=== PATIENT | female | born 1955 | race Caucasian/White ===

== ENCOUNTER 2024-07-10 09:47 | Emergency (ER) | payer MEDICARE, SELFPAY ==
[2024-07-10] VITALS (30 sets, daily range): BP systolic 110–165; BP diastolic 57–88; PULSE 53–65; RESP 15–24; TEMP 36.4–36.9; O2SAT 94–100; BMI 19.7
[2024-07-10 10:18] LABS: Add Manual Diff / Slide Review NO; Basophils Absolute Auto 100 /uL (0-100); Basophils Percent Auto 0.9 % (0-2); Eosinophils Absolute Auto 500 /uL (0-450); Eosinophils Percent Auto 4.8 % (2-4); Hematocrit 26.6 % (36-46); Hemoglobin 9.1 g/dL (12.0-16.0); Lymphocytes Absolute Auto 2200 /uL (1100-4500); Lymphocytes Percent Auto 20.7 % (25-40); Mean Corpuscular HGB Conc 34.3 % (30-36); Monocytes Absolute Auto 800 /uL (0-900); Monocytes Percent Auto 7.2 % (3-14); Neutrophils Absolute Auto 6900 /uL (1500-7000); Neutrophils Percent Auto 66.4 % (50-75); Platelet Count 311 X10^3/uL (150-400); Red Blood Cell Count 2.77 X10^6/uL (4.0-5.2); Red Cell Distribution Width 13.4 % (11.6-14.8); White Blood Cell Count 10.5 X10^3/uL (4.5-11.0)
[2024-07-10 10:20] LABS: INR 0.9 (0.9-1.3); Prothrombin Time 10.7 SECONDS (9.4-12.5)
[2024-07-10 10:23] LABS: PTT Partial Thromboplastin Tim 29 SECONDS (25.1-36.5)
[2024-07-10 10:25] LABS: Alanine Aminotransferase 29 IU/L (<35); Albumin 3.9 g/dL (3.5-5.0); Albumin Globulin Ratio 1.6 (1.0-2.8); Alkaline Phosphatase 84 U/L (38-126); Aspartate Aminotransferase 34 IU/L (14-36); BUN Creatinine Ratio 19.4 (6-22); Bilirubin Total 0.2 mg/dL (0.2-1.3); Blood Urea Nitrogen 18 mg/dL (7-17); Calcium 9.1 mg/dL (8.4-10.2); Carbon Dioxide 27 mmol/L (22-32); Chloride 108 mmol/L (98-107); Estimated Glomerular Filt Rate > 60 mL/min (>60); Globulin 2.4 g/dL (1.7-4.1); Glucose 113 mg/dL (70-99); HEMOLYSIS < 15 (0-50); Potassium 4.2 mmol/L (3.4-5.1); Sodium 142 mmol/L (137-145); Total Protein 6.3 g/dL (6.3-8.2)
--- NOTE | 2024-07-10 10:45 | ED.GIBLEED ---
HPI - GI Bleed General Chief complaint: GI Bleed Stated complaint: High white cell, Low red cell sent from Time Seen by Provider: 07/10/24 10:19 History of Present Illness HPI Narrative: Patient here with who complains of weakness dizziness and black stools since her EGD/colonoscopy last at [facility]. She did have blood work done by her constant your provider yesterday. Hemoglobin 8.7. Her baseline is usually 12 or 13 based on her laboratory records on her laptop/patient portal. Patient states biopsy was done in the stomach. She gets endoscopy every 2 years due to a chronic gastritis condition. She is not on any blood thinners. She has not had any blood transfusions. She continues to have black stools without any abdominal pain. Related Data Allergies Allergy/AdvReac Type Severity Reaction Status Date / Time No Known Drug Allergies Allergy Verified 07/10/24 11:27 Review of Systems Review of Systems Narrative: GENERAL: Negative chills, positive fatigue, malaise, negative fever, sweats. HEENT: Negative sinus pain, ear pain, sore throat RESPIRATORY: Negative dyspnea, cough CARDIOVASCULAR: Negative chest pain, palpitations GASTROINTESTINAL: Negative vomiting, nausea, positive black stool, abdominal pain : Negative dysuria, frequency, hematuria MUSCULOSKELETAL: Negative muscle or bony pain SKIN: Negative rash, skin lesions NEUROLOGIC: Negative weakness, numbness, positive dizziness ROS Unobtainable: All systems reviewed & are unremarkable except as noted in HPI and below Exam Narrative Exam Narrative: GENERAL: in no distress, not toxic not dyspneic HEAD: Normocephalic. EYES: Pupils equal round, pink conjunctivae ENT: Mucous membranes moist. NECK: Trachea midline. CARDIOVASCULAR: Regular rate and rhythm RESPIRATORY: Clear to auscultation. Breath sounds equal bilaterally. No wheezes, rales, or rhonchi. GASTROINTESTINAL: Abdomen soft, non-tender no peritoneal signs bowel sounds are present no guarding no rebound no pain out of portion exam EXTREMITIES: No gross deformities. BACK: No flank tenderness. NEURO: AOx4. Clear speech SKIN: Warm and dry PSYCH: Not anxious, is cooperative Initial Vital Signs Initial Vital Signs: Vital Signs Pulse Rate 60 07/10/24 09:53 Blood Pressure 112/60 07/10/24 09:53 Pulse Oximetry 100 07/10/24 09:53 Course Orders Ordered: ED Orders 07/10/24 10:00 Complete Blood Count AUTO DIFF Stat Comprehensive Metabolic Panel Stat PTT Partial Thromboplastin Rich Stat Prothrombin Time INR Stat Type and Screen Stat transfuse [Packed Cells] Stat Ondansetron HCl (Ondansetron 4 Mg/2 Ml Inj) 4 mg IV NOW PRN PRN Reason: Nausea And Vomiting Ondansetron HCl (Ondansetron 4 Mg Odt) 4 mg PO NOW PRN PRN Reason: Nausea And Vomiting Discontinued Medications Pantoprazole Sodium (Pantoprazole 40 Mg Vial) 40 mg IV NOW ONE Stop: 07/10/24 11:14 Last Admin: 07/10/24 11:28 Dose: 40 mg Documented By: HUGO Vital Signs Vital signs: Vital Signs - 8 hr 07/10/24 09:53 07/10/24 09:53 07/10/24 09:57 Temperature 97.5 F L Pulse Rate 60 65 Respiratory Rate 16 Blood Pressure 112/60 112/60 Pulse Oximetry 100 97 Oxygen Delivery Method Room Air 07/10/24 10:00 07/10/24 10:06 07/10/24 10:06 Temperature Pulse Rate 57 L 53 L Respiratory Rate 17 Blood Pressure 112/57 L Pulse Oximetry 99 99 Oxygen Delivery Method 07/10/24 10:30 07/10/24 10:30 07/10/24 11:00 Temperature Pulse Rate 59 L 57 L Respiratory Rate 20 18 Blood Pressure 110/72 Pulse Oximetry 100 100 Oxygen Delivery Method 07/10/24 11:00 07/10/24 11:30 07/10/24 11:30 Temperature Pulse Rate 58 L Respiratory Rate 15 Blood Pressure 142/66 H 128/60 Pulse Oximetry 98 Oxygen Delivery Method 07/10/24 12:00 07/10/24 12:30 07/10/24 13:00 Temperature 98.2 F Pulse Rate 59 L 61 59 L Respiratory Rate 24 24 19 Blood Pressure Pulse Oximetry 99 100 99 Oxygen Delivery Method 07/10/24 13:00 07/10/24 13:05 07/10/24 13:20 Temperature 98.2 F 98.2 F Pulse Rate 60 60 Respiratory Rate 18 16 Blood Pressure 130/64 130/64 130/64 Pulse Oximetry Oxygen Delivery Method 07/10/24 13:28 07/10/24 13:28 07/10/24 13:30 Temperature Pulse Rate 61 Respiratory Rate 20 Blood Pressure 132/62 130/63 Pulse Oximetry 99 Oxygen Delivery Method 07/10/24 13:30 07/10/24 14:05 07/10/24 14:06 Temperature Pulse Rate 61 64 62 Respiratory Rate 20 21 Blood Pressure Pulse Oximetry 98 96 94 Oxygen Delivery Method 07/10/24 14:06 07/10/24 14:30 07/10/24 14:30 Temperature Pulse Rate 59 L Respiratory Rate 18 Blood Pressure 165/72 H 137/68 Pulse Oximetry 100 Oxygen Delivery Method 07/10/24 15:00 07/10/24 15:00 07/10/24 15:25 Temperature Pulse Rate 58 L 58 L Respiratory Rate 19 21 Blood Pressure 150/70 H Pulse Oximetry 99 99 Oxygen Delivery Method 07/10/24 15:25 07/10/24 15:29 07/10/24 15:44 Temperature 98.4 F Pulse Rate 57 L 54 L Respiratory Rate 20 20 Blood Pressure 143/65 H 143/65 H Pulse Oximetry 98 Oxygen Delivery Method 07/10/24 15:45 07/10/24 15:45 07/10/24 15:45 Temperature 97.8 F Pulse Rate 57 L 57 L Respiratory Rate 18 24 Blood Pressure 137/67 155/70 H Pulse Oximetry 100 Oxygen Delivery Method 07/10/24 15:47 07/10/24 15:47 07/10/24 16:00 Temperature Pulse Rate 57 L 57 L Respiratory Rate 20 18 Blood Pressure 137/67 Pulse Oximetry 99 99 Oxygen Delivery Method 07/10/24 16:00 07/10/24 16:02 07/10/24 16:30 Temperature 98.2 F Pulse Rate 61 60 Respiratory Rate 16 19 Blood Pressure 136/70 136/70 Pulse Oximetry 100 Oxygen Delivery Method 07/10/24 16:30 Temperature Pulse Rate Respiratory Rate Blood Pressure 140/71 Pulse Oximetry Oxygen Delivery Method MDM - GI Bleed Lab Data 07/10/24 10:00 07/10/24 10:00 Labs: Lab Results 07/10/24 Range/Units 10:00 WBC 10.5 (4.5-11.0) X10^3/uL RBC 2.77 L (4.0-5.2) X10^6/uL Hgb 9.1 L (12.0-16.0) g/dL Hct 26.6 L (36-46) % MCV 96.0 (80-100) fL MCH 33.0 (26-34) PG MCHC 34.3 (30-36) % RDW 13.4 (11.6-14.8) % Plt Count 311 (150-400) X10^3/uL Neut % (Auto) 66.4 (50-75) % Lymph % (Auto) 20.7 L (25-40) % Gregory % (Auto) 7.2 (3-14) % Eos % (Auto) 4.8 H (2-4) % Baso % (Auto) 0.9 (0-2) % Neut # (Auto) 6900 (7647-5846) /uL Lymph # (Auto) 2200 (8593-6243) /uL Gregory # (Auto) 800 (0-900) /uL Eos # (Auto) 500 H (0-450) /uL Baso # (Auto) 100 (0-100) /uL PT 10.7 (9.4-12.5) SECONDS INR 0.9 (0.9-1.3) APTT 29 (25.1-36.5) SECONDS Sodium 142 (137-145) mmol/L Potassium 4.2 (3.4-5.1) mmol/L Chloride 108 H (98-107) mmol/L Carbon Dioxide 27 (22-32) mmol/L BUN 18 H (7-17) mg/dL Creatinine 0.93 (0.52-1.04) mg/dL Estimated GFR > 60 (>60) mL/min BUN/Creatinine Ratio 19.4 (6-22) Glucose 113 H (70-99) mg/dL Calcium 9.1 (8.4-10.2) mg/dL Total Bilirubin 0.2 (0.2-1.3) mg/dL AST 34 (14-36) IU/L ALT 29 (<35) IU/L Alkaline Phosphatase 84 (38-126) U/L Total Protein 6.3 (6.3-8.2) g/dL Albumin 3.9 (3.5-5.0) g/dL Globulin 2.4 (1.7-4.1) g/dL Albumin/Globulin Ratio 1.6 (1.0-2.8) Blood Type O Positive Antibody Screen Negative Crossmatch See Detail Urine Dip Bedside Urine Glucose Negative Bedside Urine Bilirubin - Negative Bedside Urine Ketone - Negative Urine Specific Scobey 1.010 Bedside Urine Occult Blood - Negative Bedside Urine pH 8.0 Bedside Urine Protein - Negative Bedside Urine Urobilinogen - Negative Bedside Urine Nitrite - Negative Bedside Urine Leukocytes - Negative Esterase [facility] Narrative Medical decision making narrative: Patient here with who complains of weakness dizziness and black stools since her EGD/colonoscopy last at [facility]. She did have blood work done by her constant your provider yesterday. Hemoglobin 8.7. Her baseline is usually 12 or 13 based on her laboratory records on her laptop/patient portal. Patient states biopsy was done in the stomach. She gets endoscopy every 2 years due to a chronic gastritis condition. She is not on any blood thinners. She has not had any blood transfusions. She continues to have black stools without any abdominal pain. After history and exam, CBC CMP type and screen, GI consult, no CT indicated at this time. Will not record changer. [facility] Medical records reviewed: CBC results from the past 2 years Differential considered: Includes but not limited to postop bleed GI bleed gastric bleed Lab Test results independently reviewed as above. Pertinent findings: WBC 10.5 hemoglobin 9.1 hematocrit 26.6 platelets 311 INR 0.9 BUN 18 creatinine 0.93 Consultations: 11:20 a.m.. I spoke with patient's GI doctor Dr Rainey, recommends patient getting EGD, if not available here then transferred to [facility] to the hospitalist for admission. Agrees with Protonix and blood transfusions to be done now since patient dropped 4 points in less than a week since the surgery 11:30 a.m.. I spoke with our on-call surgeon Dr Yost, is not comfortable with EGD to be done here as he does not do a therapeutic procedures, please transfer patient 12:40 p.m.. Spoke with [facility] hospitalist, Dr. Agrawal, she will accept patient. Re-evaluations: 11:57 a.m.. Updated patient and treatment plan and transfer. They do agree and understand why they are being transferred. Discussion: Appropriate for transfer for higher level of care endoscopy and continuity of care. Diagnosis: Upper GI bleed Critical Care Time Critical Care Time Attestation: Critical Care Time 35 minutes: Critical care time is separate from other billable procedures. This critical care time includes consultation with family and other consulting doctors, review of records, and interpretation of data from labs, , etc. [facility]charge Plan [facility] Impression: Melena, Acute upper GI bleed
[2024-07-10] MEDS: PANTOPRAZOLE 40 MG VIAL IV (11:28)
--- NOTE | 2024-07-10 16:46 | PC.NURSE ---
TRANSVERSE ABDOMINAL MUSCLE NURSE Note: Started transfer to 1127. Consult[address] Dr[address] Rainey with GI. Consulted with Dr. Yost who declined to keep in house. Consulted hospitalist, Dr. Reynaga, who accepted transfer to . Bed assigned at 1620, Bed 1476. RN Report [phone] ext. [phone]. Transport arranged with [facility] at 1630, ETA to at 1815. ETA called to at 1645.
== END 2024-07-10 18:10 | disposition short-term general hospital (02) ==
PROVIDERS: Emergency Provider Emergency Medicine
DX: K92.2 Gastrointestinal hemorrhage, unspecified (principal); K92.1 Melena; R79.89 Other specified abnormal findings of blood chemistry
CPT/HCPCS: 36415; 36430; 80053; 81003; 85025; 85610; 85730; 86850; 86900; 86901; 96374; 99285; 99291; P9016; J2470